=== PATIENT | male | born 1935 | race Caucasian/White ===

== ENCOUNTER → 2018-06-30 | Outpatient (CLI) | payer MEDICARE, BC ==
--- NOTE | 2018-06-30 15:12 | PCVCIMAG ---
EXAM: BILATERAL CAROTID DUPLEX INDICATION: Carotid Occlusive Disease. FINDINGS: Doppler Measurements (centimeters per second): RIGHT: Peak CCA-90, Peak ECA-122, Diastolic ICA-21, Peak ICA-69, ICA/CCA Ratio-0.8. LEFT: Peak CCA-97, Peak ECA-89, Diastolic ICA-18, Peak ICA-81, ICA/CCA Ratio-0.8. RIGHT CAROTID: The carotid bulb has mild plaque. The proximal internal carotid artery shows <40% stenosis. The common carotid artery shows no significant stenosis. The external carotid artery shows no significant stenosis. LEFT CAROTID: The carotid bulb has mild plaque. The proximal internal carotid artery shows <40% stenosis. The common carotid artery shows no significant stenosis. The external carotid artery shows no significant stenosis. Antegrade flow in both vertebral arteries. IMPRESSION: <40% stenosis of the right internal carotid artery with mild plaque. <40% stenosis of the left internal carotid artery with mild plaque. LOC:[place] [id number]
--- NOTE | 2018-06-30 17:08 | PCVCIMAG ---
APPROVED REPORT Study performed: 06/30/2018 13:35:36 Exam: Stress Echocardiogram Indication: Hyperlipidemia, Abnormal calcium score Patient Location: Echo lab Stress Nurse: Velia Sexton RN Status: routine Ht: 5 ft 9 in HR: 72 bpm BP: 122/80 mmHg Rhythm: RBBB Medical History Medical History: Hyperlipidemia, Elevated calcium score Exercise History: Physically active Procedure The patient underwent an Exercise Stress Test using the Lucius Protocol. Blood pressure, heart rate, and EKG were monitored. An Echocardiogram was performed by medical records technician in four stages in quad fashion. At peak stress, four selected images were obtained and placed side by side with resting images for comparison. Stress Test Details Stress Test: Exercise stress testing was performed using a Lucius protocol. HR Resting HR: 72 bpmMax Heart Rate (APMHR): 140 bpm Max HR Achieved: 146 bpmTarget HR (85% APMHR): 119 bpm % of APMHR: 104 HR response to stress: Normal HR response to stress BP Resting BP: 122/80 mmHg Max BP: 148/80 mmHg ECG Resting ECG: Sinus Rhythm, RBBB Stress ECG: Sinus Rhythm, RBBB Recovery ECG: Sinus Rhythm Clinical Reason for Termination: Maximal effort Exercise duration: 7 min 15 sec Highest Stage Achieved: Stage 3: 3.4 mph at 14% grade. Exercise capacity: 10.10 METs Overall Exercise Capacity for Age: Good Pre-Stress Echo The resting Echocardiogram showed normal left ventricular contractility with an estimated Ejection Fraction of about >55%. Normal wall motion in all segments on baseline images. Post-Stress Echo The stress Echocardiogram showed normal left ventricular contractility with an estimated Ejection Fraction of about 55-60%. Normal augmentation of wall motion in all segments on post stress images. Clinical No clinical or ECG evidence for ischemia. Conclusion Clinical Response: Non-ischemic Exercise Capacity: Average Stress ECG Response: Non-ischemic Stress Echo Images: Non-ischemic The left ventricle is normal in size and wall thickness in both the rest and stress images. Other Information Study Quality: Good <Conclusion> The left ventricle is normal in size and wall thickness in both the rest and stress images.
== END | disposition home or self-care (01) ==
LOC: PCVCIMAG 15:49
PROVIDERS: ATTEND Internal Medicine Cardiovascular Disease
DX: R09.89 Other specified symptoms and signs involving the circulatory and respiratory systems (principal); I65.23 Occlusion and stenosis of bilateral carotid arteries; E78.00 Pure hypercholesterolemia, unspecified; R93.1 Abnormal findings on diagnostic imaging of heart and coronary circulation; E78.5 Hyperlipidemia, unspecified
CPT/HCPCS: 93005; 93325; 93351; 93880; G0463

== ENCOUNTER → 2019-06-30 | Outpatient (CLI) | payer MEDICARE, BC | END | disposition home or self-care (01) | LOC: PCVCCLINIC 15:30 | PROVIDERS: ATTEND Internal Medicine Cardiovascular Disease | DX: I25.10 Atherosclerotic heart disease of native coronary artery without angina pectoris (principal); E78.5 Hyperlipidemia, unspecified; R93.1 Abnormal findings on diagnostic imaging of heart and coronary circulation; E78.00 Pure hypercholesterolemia, unspecified; I65.23 Occlusion and stenosis of bilateral carotid arteries; Z72.89 Other problems related to lifestyle; Z79.899 Other long term (current) drug therapy | CPT/HCPCS: 36415; 80061; 93005; G0463 ==